=== PATIENT | female | born 1955 | race Asian ===

== ENCOUNTER → 2016-08-11 | Outpatient (CLI) | payer OTHER ==
--- NOTE | ~2016-08-11 | CR61 ---
[facility] A Service of [facility] & [facility] RADIOLOGY TEXT RESULTS PATIENT: BERTA LAZAR LOCATION: [facility] : 53 UNIT #: [id number] AGE: [address]: Lynnette Ace MD SEX: F ORDER DR: [id number] [facility] [address] [place], [place] [address] [id number] O MR#: [id number] Acc #: [id number] NAME: BETRA LAZAR : 1955 SEX: F STUDY DATE/TIME: 08/11/2016 12:50 UNIT: [facility] ROOM: STUDY DESCRIPTION: CR Cervical Spine Min 5 Views Attending Physician: Lynnette Ace M.D. Referring Physician: Lynnette Ace M.D. Ordering Physician: Lynnette Ace M.D. Primary Care Physician: Lynnette Ace M.D. MEDICAL IMAGING REPORT This report is preliminary unless electronic signature is present EXAM Cervical spine series, 5 views. DATE OF STUDY 08/11/2016 COMPARISON STUDIES None CLINICAL HISTORY Right neck and shoulder pain. Pain radiates down to the right elbow. FINDINGS Alignment is normal. There is osteopenia and there some facet degenerative change but no evidence of fracture, prevertebral swelling or other acute abnormality. Dictated by... Timothy Wilhelm M.D. THIS IS AN ELECTRONICALLY VERIFIED REPORT Timothy Wilhelm M.D. at 08/12/2016 4:53 PM SANDEEP/chantelle TD: 08/11/2016 16:36 JOB #: [id number] MEDICAL IMAGING REPORT Page 1 of 1 COPY
--- NOTE | ~2016-08-11 | CR230 ---
[facility] A Service of [facility] & [facility] RADIOLOGY TEXT RESULTS PATIENT: BERTA LAZAR LOCATION: [facility] : 53 UNIT #: [id number] AGE: [address]: Lynnette Ace MD SEX: F ORDER DR: [id number] [facility] [address] [place], [place] [address] [id number] O MR#: [id number] Acc #: [id number] NAME: BERTA LAZAR : 1955 SEX: F STUDY DATE/TIME: 08/11/2016 12:37 UNIT: [facility] ROOM: STUDY DESCRIPTION: CR Shoulder Min 2 View Rt Attending Physician: Lynnette Ace M.D. Referring Physician: Lynnette Ace M.D. Ordering Physician: Lynnette Ace M.D. Primary Care Physician: Lynnette Ace M.D. MEDICAL IMAGING REPORT This report is preliminary unless electronic signature is present EXAM Right shoulder INDICATIONS Right shoulder and neck pain for 2 months. FINDINGS 3 views of the right shoulder were obtained. There is narrowing of the acromiohumeral space suggesting a rotator cuff tear. There is no fracture or dislocation. IMPRESSION Narrowing of the acromiohumeral space, probably representing a rotator cuff tear. Otherwise normal. Dictated by... Nir Kaur M.D. THIS IS AN ELECTRONICALLY VERIFIED REPORT Nir Kaur M.D. at 08/12/2016 7:10 AM KALLIE/manolo TD: 08/11/2016 18:09 JOB #: [id number] MEDICAL IMAGING REPORT Page 1 of 1 COPY
== END | disposition home or self-care (01) ==
LOC: CRAD 12:06
DX: M54.12 Radiculopathy, cervical region (principal); M48.02 Spinal stenosis, cervical region
CPT/HCPCS: 72050; 73030

== ENCOUNTER → 2016-08-19 | Outpatient (CLI) | payer OTHER ==
--- NOTE | ~2016-08-19 | MR165 ---
[facility] A Service of [facility] & [facility] RADIOLOGY TEXT RESULTS PATIENT: BERTA LAZAR LOCATION: [facility] : 53 UNIT #: [id number] AGE: [address]: Lynnette Ace MD SEX: F ORDER DR: [id number] [facility] [address] [place], [place] [address] [id number] O MR#: [id number] Acc #: [id number] NAME: BERTA LAZAR : 1955 SEX: F STUDY DATE/TIME: 08/19/2016 17:25 UNIT: [facility] ROOM: STUDY DESCRIPTION: MR Shoulder Wo Contrast Rt Attending Physician: Lynnette Ace M.D. Referring Physician: Lynnette Ace M.D. Ordering Physician: Lynnette Ace M.D. Primary Care Physician: Lynnette Ace M.D. MRI CENTER REPORT This report is preliminary unless electronic signature is present. EXAM Right shoulder MRI without contrast 08/19/2016 HISTORY 61-year-old female with right shoulder pain for 1 year. No specific injury. No prior right shoulder surgery. COMPARISON Right shoulder x-rays 08/11/2016 TECHNIQUE Routine unenhanced multiplanar, multisequence high field MR imaging of the right shoulder was performed. FINDINGS There are chronic-appearing full-thickness, full width tears of the supraspinatus and infraspinatus tendons. The tendons are retracted beyond the level of the glenoid and there is fatty atrophy in the supraspinatus and infraspinatus muscles. Humeral head is high-riding. Teres minor tendon appears intact. There is [id number]-aghefenn subscapularis tendinopathy without evidence of high-grade tear. Long biceps tendon appears intact with moderate to high-grade tendinopathy of the intraarticular portion of the long biceps tendon. There is degeneration of the superior and posterior glenoid labrum. Glenohumeral articular cartilage is intact. There is a small to moderate glenohumeral effusion with fluid extending into the subacromial/subdeltoid bursa. Mild degenerative change of acromioclavicular joint. No subacromial spur. There is mild reactive marrow edema in the lesser tuberosity of the humerus. Remainder of the bone marrow signal within expected limits. [facility]. [facility] A Service of [facility] RADIOLOGY TEXT RESULTS PATIENT: BERTA LAZAR LOCATION: [facility] : 53 UNIT #: [id number] AGE: [address]: Lynnette Ace MD SEX: F ORDER DR: Remainder of the visualized musculature is unremarkable. IMPRESSION 1. Chronic-appearing full-thickness, full width retracted tears of the supraspinatus and infraspinatus tendons. There is fatty atrophy of the supraspinatus and infraspinatus muscles. Humeral head is high-riding. 2. Mild to moderate subscapularis tendinopathy without evidence of high-grade tear. 3. Moderate to high-grade tendinopathy of the intraarticular long biceps tendon without evidence of tear. 4. Yyof-ao-aivwlgsp degeneration of the superior and posterior glenoid labrum. 5. Small to moderate glenohumeral effusion. 6. Mild acromioclavicular joint arthrosis. 7. Mild reactive marrow edema in the lesser tuberosity of the humerus. Dictated by... Trino Renteria M.D. THIS IS AN ELECTRONICALLY VERIFIED REPORT Trino Renteria M.D. at 08/21/2016 8:09 AM Mikal TD: 08/21/2016 07:25 JOB #: [id number] MRI CENTER REPORT Page 1 of 1 COPY
== END | disposition home or self-care (01) ==
LOC: CMRI 16:11
DX: M75.101 Unspecified rotator cuff tear or rupture of right shoulder, not specified as traumatic (principal); M75.121 Complete rotator cuff tear or rupture of right shoulder, not specified as traumatic; M62.511 Muscle wasting and atrophy, not elsewhere classified, right shoulder; M75.81 Other shoulder lesions, right shoulder; M75.21 Bicipital tendinitis, right shoulder; M24.811 Other specific joint derangements of right shoulder, not elsewhere classified; M25.411 Effusion, right shoulder; M19.011 Primary osteoarthritis, right shoulder
CPT/HCPCS: 73221